=== PATIENT | male | born 1965 | race Hispanic/Latino ===

== ENCOUNTER 2020-11-10 13:02 | Emergency (ER) | payer SELFPAY ==
[2020-11-10 14:02] LABS: Absolute Lymphocytes (CBC) 0.7 K/uL (0.7-4.9); Basophils % 0.3 % (0-1.3); Hematocrit 30.1 % (39.6-49.0); Lymphocytes % 8.6 % (15.3-44.8); MPV 8.3 fL (7.6-11.3); RBC Red Blood Cell Count 3.49 M/uL (4.33-5.43)
[2020-11-10 14:04] LABS: ALT/SGPT 34 U/L (12-78); AST/SGOT 21 U/L (15-37); Albumin 2.9 g/dL (3.4-5.0); Alkaline Phosphatase 138 U/L (45-117); BUN Blood Urea Nitrogen 47 mg/dL (7-18); Bicarbonate 21 mmol/L (21-32); Bilirubin Direct < 0.1 mg/dL (0-0.2); Bilirubin Total 0.4 mg/dL (0.2-1.0); Glucose Level 169 mg/dL (74-106); Lipase 176 U/L (73-393); Magnesium 2.1 mg/dL (1.8-2.4); Potassium 4.7 mmol/L (3.5-5.1); Protein, Total 7.6 g/dL (6.4-8.2); Sodium Level 148 mmol/L (136-145)
[2020-11-10] MEDS ORDERED: MORPHINE 2 MG/ML SYR ONE (14:08)
[2020-11-10] MEDS ORDERED: ONDANSETRON 4 MG/2 ML VIAL ONE (14:08)
[2020-11-10] MEDS ORDERED: NA CHLORIDE 0.9% 1,000 ML ONE (14:08)
--- NOTE | 2020-11-10 14:37 | RAD REPORT ---
EXAM DESCRIPTION: CT - Stone Protocol - 11/10/2020 2:17 pm CLINICAL HISTORY: Flank pain. FLANK PAIN COMPARISON: No comparisons TECHNIQUE: Axial images were obtained without oral or IV contrast. Lack of contrast limits solid org an and vascular assessment. The [id number] spans the entirety of the system partially obscuring uppermost abdomen and lung bases. Coronal reformatted images were obtained and reviewed. All CT scans are performed using dose optimization technique as appropriate and may include automated exposure control or mA/KV adjustment according to patient size. FINDINGS: The lower lung kaur are clear. Imaged portions of the liver and spleen show no suspicious findings on non-contrast imaging. The panc reas and adrenal glands are normal. No pathologic lymphadenopathy in the abdomen or pelvis. There is a vague 4 mm calculus in the mid right ureter with mild right-sided hydronephrosis and hydro ureter. There is no left-sided renal calculus or hydronephrosis. No bowel obstruction, free air, free fluid or abscess. Normal appendix noted. No significant bony abnormality. IMPRESSION: Vague 4 mm calculus mid right ureter with mild right-sided hydronephrosis and hydrourete r.
[2020-11-10 14:43] LABS: Blood Morphology Comment NOT SEEN (NOT SEEN); Platelet Estimate ADEQ; White Blood Cell Scan OK (OK)
[2020-11-10 15:16] LABS: Urine Blood 3+ (NEG); Urine Glucose 1+ (NEG); Urine Protein 3+ (NEG); Urine Specific Gravity 1.025 (1.005-1.030); Urine pH 5.5 (5.0-7.0)
[2020-11-10 15:19] LABS: Urine Bacteria <20 /HPF (NONE SEEN); Urine RBC >50 /HPF (NONE SEEN)
--- NOTE | 2020-11-10 15:57 | EDPHYS ---
Physician Documentation [facility] Name: David Figueroa Age: 55 yrs Sex: Male : 1965 Arrival Date: 11/10/2020 Time: 13:06 Bed 26 Private MD: ED Physician Martin Hernandez HPI: 11/10 13:29 This 55 yrs old Male presents to ER via Ambulatory with complaints of cp Abdominal Pain, Back Pain, Nausea. 13:29 The patient presents with abdominal pain right lower quadrant. Associated signs and cp symptoms: Pertinent positives: nausea and vomiting, Pertinent negatives: testicular pain. 13:29 Onset: The symptoms/episode began/occurred yesterday. cp 13:29 The symptoms are described as constant. Severity of pain: in the emergency department cp the pain is unchanged despite home interventions. Historical: - Allergies: 13:16 No Known Allergies; ll1 - PMHx: 13:16 None; ll1 - PSHx: 13:16 None; ll1 - Immunization history:: Flu vaccine is not up to date. - Social history:: Smoking status: Patient denies any tobacco usage or history of. ROS: 13:29 Eyes: Negative for injury, pain, redness, and discharge. cp 13:29 Constitutional: Negative for fever, poor PO intake. 13:29 Abdomen/GI: Positive for abdominal pain, nausea and vomiting, of the right lower quadrant. Exam: 13:31 Head/Face: Normocephalic, atraumatic. cp 13:31 Constitutional: The patient appears in no acute distress, alert, awake, non-toxic, well developed, well nourished, uncomfortable. 13:31 Eyes: Periorbital structures: appear normal, Conjunctiva: normal, no exudate, no injection, Sclera: no appreciated abnormality, Lids and lashes: appear normal, bilaterally. 13:31 ENT: External ear(s): are unremarkable, Nose: is normal, Posterior pharynx: Airway: no evidence of obstruction, patent. 13:31 Chest/axilla: Inspection: normal, Palpation: is normal, no crepitus, no tenderness. 13:31 Cardiovascular: Rate: normal, Rhythm: regular. 13:31 Respiratory: the patient does not display signs of respiratory distress, Respirations: normal, no use of accessory muscles, no retractions, labored breathing, is not present, Breath sounds: are clear throughout, no decreased breath sounds. 13:31 Abdomen/GI: Inspection: abdomen appears normal, Bowel sounds: active, all quadrants, Palpation: soft, in all quadrants, moderate abdominal tenderness, in the right lower quadrant, rebound tenderness, is not appreciated, involuntary guarding, is not appreciated. Vital Signs: 13:10 BP 154 / 93; Pulse 79; Resp 17; Temp 97.6; Pulse Ox 99% ; Weight 99.79 kg; Height 5 ft. ll1 9 in. (175.26 cm); Pain 10/10; 13:48 BP 160 / 97; Pulse 79; Resp 18; Temp 97.9(O); Pulse Ox 98% on R/A; vg1 15:00 BP 167 / 98; Pulse 86; Resp 16; Pulse Ox 100% on R/A; vg1 13:10 Body Mass Index 32.49 (99.79 kg, 175.26 cm) ll1 MDM: 13:19 Patient medically screened. cp 14:00 Differential diagnosis: appendicitis, non-specific abd pain, pancreatitis, Prostatitis, cp Testicular Torsion, Ureterolithiasis, urinary tract infection. 15:55 Data reviewed: vital signs, nurses notes, lab test result(s), radiologic studies, CT cp scan. 15:55 Counseling: I had a detailed discussion with the patient and/or guardian regarding: the cp historical points, exam findings, and any diagnostic results supporting the discharge/admit diagnosis, lab results, radiology results, to return to the emergency department if symptoms worsen or persist or if there are any questions or concerns that arise at home. ED course: VSS. Pain and nausea markedly improved with meds. Will discharge to home for continued monitoring. 11/10 13:21 Order name: Basic Metabolic Panel cp 11/10 13:21 Order name: CBC with Diff cp 11/10 13:21 Order name: Hepatic Function cp 11/10 13:21 Order name: Lipase cp 11/10 13:21 Order name: Magnesium cp 11/10 13:21 Order name: Urine Microscopic Only cp 11/10 13:21 Order name: Basic Metabolic Panel; Complete Time: 14:20 EDMS 11/10 14:21 Interpretation: Normal except: NA 148; CL 119; GLUC 169; BUN 47; CRE 1.45; GFR 51. cp 11/10 13:21 Order name: Liver (Hepatic) Function; Complete Time: 14:20 EDMS 11/10 13:21 Order name: Lipase; Complete Time: 14:20 EDMS 11/10 13:21 Order name: CBC with Automated Diff; Complete Time: 15:34 EDMS 11/10 14:21 Interpretation: Normal except: RBC 3.49; HGB 10.1; HCT 30.1; RDW 15.6; RAMÓN% 86.9; LYM% cp 8.6. 11/10 13:21 Order name: Magnesium; Complete Time: 14:20 EDMS 11/10 13:21 Order name: Urine Microscopic Only; Complete Time: 15:34 EDMS 11/10 14:41 Order name: Urine Culture cp 11/10 14:43 Order name: CBC Smear Scan; Complete Time: 15:34 EDMS 11/10 13:21 Order name: IV Saline Lock; Complete Time: 13:47 cp 11/10 13:21 Order name: Labs collected and sent; Complete Time: 13:47 cp 11/10 13:21 Order name: Urine Dipstick-Ancillary (obtain specimen); Complete Time: 15:14 cp 11/10 13:58 Order name: CT Stone Protocol; Complete Time: 14:38 cp 11/10 15:09 Order name: Urine Dipstick--Ancillary (enter results); Complete Time: 15:34 mt 11/10 15:13 Order name: PO challenge; Complete Time: 16:07 cp Administered Medications: 13:58 Drug: Zofran (Ondansetron) 4 mg Route: IVP; Site: right wrist; vg1 16:31 Follow up: Response: No adverse reaction; Nausea unchanged vg1 13:58 Drug: morphine 2 mg Route: IVP; Site: right wrist; vg1 16:32 Follow up: Response: No adverse reaction vg1 13:58 Drug: NS 0.9% 1000 ml Route: IV; Rate: 1 bolus; Site: right wrist; vg1 14:30 Follow up: IV Status: Completed infusion vg1 15:07 Drug: Flomax 0.4 mg Route: PO; vg1 15:35 Follow up: Response: No adverse reaction vg1 15:08 Drug: TORadol - Ketorolac 15 mg Route: IVP; Site: right wrist; vg1 15:35 Follow up: Response: No adverse reaction vg1 15:08 Drug: Rocephin - (cefTRIAXone) 1 grams Route: IVPB; Infused Over: 30 mins; Site: right vg1 wrist; 15:35 Follow up: Response: No adverse reaction; IV Status: Completed infusion vg1 15:09 Drug: Magnesium Sulfate 1 grams Route: IVPB; Infused Over: 30 mins; Site: right wrist; vg1 15:35 Follow up: IV Status: Completed infusion vg1 Disposition: 17:50 Co-signature as Attending Physician, Martin Hernandez MD I agree with the assessment and tw4 plan of care. Disposition: 11/10/20 15:57 Discharged to Home. Impression: Calculus of ureter - right. - Condition is Stable. - Discharge Instructions: Kidney Stones, Renal Colic. - Prescriptions for Tylenol- Codeine #3 300-30 mg Oral Tablet - take 2 tablets by ORAL route every 4-6 hours As needed; 20 tablet. Zofran 4 mg Oral Tablet - take 1 tablet by ORAL route every 12 hours As needed; 20 tablet. Flomax 0.4 mg Oral Capsule, Sust. Release 24 hr - take 1 capsule by ORAL route once daily As needed 1/2 hour following the same meal each day; 7 capsule. Keflex 500 mg Oral Capsule - take 1 capsule by ORAL route every 8 hours for 7 days; 21 capsule. - Medication Reconciliation Form, Thank You Letter, Antibiotic Education, Prescription Opioid Use form. - Follow up: Alexei Smallwood MD; When: 2 - 3 days; Reason: Worsening of condition. - Problem is new. - Symptoms have improved. Signatures: Dispatcher [employer] [facility] Peter Bagley PA PA cp Wadley, Terrence, MD MD tw4 Lindsey Reeves RN RN vg1 Kanchan Workman, RN RN ll1 Corrections: (The following items were deleted from the chart) 16:31 15:57 11/10/2020 15:57 Discharged to Home. Impression: Calculus of ureter - right. vg1 Condition is Stable. Forms are Medication Reconciliation Form, Thank You Letter, Antibiotic Education, Prescription Opioid Use. Follow up: Alexei Smallwood; When: 2 - 3 days; Reason: Worsening of condition. Problem is new. Symptoms have improved. cp
--- NOTE | 2020-11-10 15:57 | ER ---
Nurse's Notes [facility] Name: David Figueroa Age: 55 yrs Sex: Male : 1965 Arrival Date: 11/10/2020 Time: 13:06 Bed 26 [facility] MD: Diagnosis: Calculus of ureter-right Presentation: 11/10 13:10 Chief complaint: Patient states: R flank pain for 1 day. Actively vomiting before ll1 triage. No known fever. Reports dysuria. Coronavirus screen: Client denies travel out of the [place] in the last 14 days. At this time, the client does not indicate any symptoms associated with coronavirus-19. Ebola Screen: Patient denies travel to an Ebola-affected area in the 21 days before illness onset. Initial Sepsis Screen: Does the patient meet any 2 criteria? No. Patient's initial sepsis screen is negative. Does the patient have a suspected source of infection? Yes: Dysuria/Frequency/Urgency/UTI. Risk Assessment: Do you want to hurt yourself or someone else? Patient reports no desire to harm self or others. Onset of symptoms was November 10, 2020. 13:10 Method Of Arrival: Ambulatory ll1 13:10 Acuity: PRERNA 3 ll1 Historical: - Allergies: 13:16 No Known Allergies; ll1 - PMHx: 13:16 None; ll1 - PSHx: 13:16 None; ll1 - Immunization history:: Flu vaccine is not up to date. - Social history:: Smoking status: Patient denies any tobacco usage or history of. Screenin:49 Abuse screen: Denies threats or abuse. Nutritional screening: No deficits noted. vg1 Tuberculosis screening: No symptoms or risk factors identified. Fall Risk No fall in past 12 months (0 pts). No secondary diagnosis (0 pts). IV access (20 points). Ambulatory Aid- None/Bed Rest/Nurse Assist (0 pts). Gait- Normal/Bed Rest/Wheelchair (0 pts) Mental Status- Oriented to own ability (0 pts). Total Ramos Fall Scale indicates No Risk (0-24 pts). Assessment: 13:47 General: Appears in no apparent distress. uncomfortable, Behavior is calm, cooperative. vg1 Pain: Complains of pain in right lower quadrant that radiates to the right lower back Pain currently is 10 out of 10 on a pain scale. Pain began 1 day ago. Neuro: Level of Consciousness is awake, alert, obeys commands, Oriented to person, place, time, situation. Cardiovascular: Patient's skin is warm and dry. Respiratory: Airway is patent Respiratory effort is even, unlabored. GI: Bowel sounds present X 4 quads. Abdomen is tender to palpation in right lower quadrant. : Reports burning with urination, pain. EENT: No signs and/or symptoms were reported regarding the EENT system. Derm: Skin is intact, is healthy with good turgor. Musculoskeletal: Circulation, motion, and sensation intact. 15:10 Reassessment: Patient appears in no apparent distress at this time. No changes from vg1 previously documented assessment. Patient and/or family updated on plan of care and expected duration. Pain level reassessed. Patient is alert, oriented x 3, equal unlabored respirations, skin warm/dry/pink. Vital Signs: 13:10 BP 154 / 93; Pulse 79; Resp 17; Temp 97.6; Pulse Ox 99% ; Weight 99.79 kg; Height 5 ft. ll1 9 in. (175.26 cm); Pain 10/10; 13:48 BP 160 / 97; Pulse 79; Resp 18; Temp 97.9(O); Pulse Ox 98% on R/A; vg1 15:00 BP 167 / 98; Pulse 86; Resp 16; Pulse Ox 100% on R/A; vg1 13:10 Body Mass Index 32.49 (99.79 kg, 175.26 cm) ll1 ED Course: 13:06 Patient arrived in ED. ds1 13:10 Arm band placed on. ll1 13:15 Triage completed. ll1 13:17 Peter aBgley PA is PHCP. cp 13:17 Martin Hernandez MD is Attending Physician. cp 13:27 Lindsey Reeves, FIDE is Primary Nurse. vg1 13:35 Initial lab(s) drawn, by me, sent to lab. Inserted saline lock: 20 gauge in right jp3 wrist, using aseptic technique. Blood collected. 13:35 Patient maintains SpO2 saturation greater than 95% on room air. jp3 13:49 Patient has correct armband on for positive identification. Bed in low position. Call 1 light in reach. Side rails up X 1. 14:17 CT Stone Protocol In Process Unspecified. EDMS 15:56 Alexei Smallwood MD is Referral Physician. cp 16:30 No provider procedures requiring assistance completed. IV discontinued, intact, vg1 bleeding controlled, No redness/swelling at site. Pressure dressing applied. Administered Medications: 13:58 Drug: Zofran (Ondansetron) 4 mg Route: IVP; Site: right wrist; vg1 16:31 Follow up: Response: No adverse reaction; Nausea unchanged vg1 13:58 Drug: morphine 2 mg Route: IVP; Site: right wrist; vg1 16:32 Follow up: Response: No adverse reaction vg1 13:58 Drug: NS 0.9% 1000 ml Route: IV; Rate: 1 bolus; Site: right wrist; vg1 14:30 Follow up: IV Status: Completed infusion vg1 15:07 Drug: Flomax 0.4 mg Route: PO; vg1 15:35 Follow up: Response: No adverse reaction vg1 15:08 Drug: TORadol - Ketorolac 15 mg Route: IVP; Site: right wrist; vg1 15:35 Follow up: Response: No adverse reaction vg1 15:08 Drug: Rocephin - (cefTRIAXone) 1 grams Route: IVPB; Infused Over: 30 mins; Site: right vg1 wrist; 15:35 Follow up: Response: No adverse reaction; IV Status: Completed infusion vg1 15:09 Drug: Magnesium Sulfate 1 grams Route: IVPB; Infused Over: 30 mins; Site: right wrist; vg1 15:35 Follow up: IV Status: Completed infusion vg1 Outcome: 15:57 Discharge ordered by MD. cp 16:30 Discharged to home ambulatory. vg1 16:30 Condition: stable 16:30 Discharge instructions given to patient, Instructed on discharge instructions, follow up and referral plans. medication usage, Demonstrated understanding of instructions, follow-up care, medications, Prescriptions given X 4. 16:31 Patient left the ED. vg1 Addendum: 11/14/2020 18:01 Addendum: Culture Results: Positive urine culture. No further action required. Other: s v pt stated that he feels better. Signatures: Dispatcher [employer] EDVT Erica Mccarthy RN RN sv Sanford, Demi ds1 Peter Bagley PA PA Rudolph Randolph jp3 Lindsey Reeves RN RN vg1 Kanchan Workman RN RN ll1 Corrections: (The following items were deleted from the chart) 03 13:57 13:48 BP 160 / 97; Pulse 79bpm; Resp 18bpm; Pulse Ox 98% RA; vg1 vg1 13:58 13:48 BP 160 / 97; Pulse 79bpm; Resp 18bpm; Pulse Ox 98% RA; Temp 97.9F; vg1 vg1
[2020-11-10 16:38] VITALS: TEMP 97.9
[2020-11-10 16:39] VITALS: BP 167/98; O2SAT 100
[2020-11-10] MEDS ORDERED: KETOROLAC 30 MG/ML INJ ONE (16:59)
[2020-11-10] MEDS ORDERED: MAGNESIUM SULFATE 1 gm IVPB 1 GM/100 ML BAG IV ONE (16:59)
[2020-11-10] MEDS ORDERED: CEFTRIAXONE/SWI 1gm 1 GM/10 ML SYR ONE (16:59)
[2020-11-10] MEDS ORDERED: TAMSULOSIN 0.4 MG SR CAP ONE (16:59)
== END 2020-11-10 16:31 | disposition home or self-care (01) ==
LOC: ER 13:02
DX: N20.1 Calculus of ureter (principal)
CPT/HCPCS: 36415; 74176; 76377; 80048; 80076; 81003; 81015; 83690; 83735; 85025; 87077; 87086; 87088; 87186; 96361; 96365; 96375; 99284; J0696; J2270; J2405; J3475; J7030

== ENCOUNTER 2022-09-20 10:55 | Emergency (ER) | payer SELFPAY ==
--- OUTSIDE RECORDS SUMMARY | 2022-09-20 10:58 | XMS REPORT | Continuity of Care Document ---
:1965 Author Organization [facility] t Address [address] [place] [address] Care Team Providers Name Role Phone PCP, PATIENT DOES NOT HAVE A Primary Care Physician Unavaila CHAVEZ Stone Attending Clinician Unavailable Chavez Lovell DO Attending Clinician CHAVEZ LOVELL Admitting Clinician Unavailable Problems This patient has no known problems. Allergies, Adverse Reactions, Alerts Allergy Allergy Status Severity Reaction(s) Onset Inactive Treating Comm ents Source Name Type Date Date Clinician NO KNOWN Drug Active [facility] [place] [facility] Social History Social Habit Start Date Stop Date Quantity Comments Source Exposure to 2022-02-28 2022-03-10 Not sure [facility] SARS-CoV-2 (event) 00:00:00 12:47:00 Medica l Branch Sex Assigned At [birth year] [facility] y [facility] 00:00:00 00:00:00 Medical Branch Smoking Status Start Date Stop Date Source Tobacco smoking consumption Univ [facility] Medical unknown Branch Medications Ordered Filled Start Stop Current Ordering Indication Dosage Frequency Signature Comments Components Source Medication Medication Date Date Medication? Clinician (SIG) Name Name NaCl 0.9% 2021- No 1000mL at 999 Uni vers (NS) bolus 03-10 07-11 mL/hr, ity of infusion 20:00: 21:05 1,000 mL, Adi as 1,000 mL 00 :00 IV Medical Piggyback, Branch ONCE, 1 dose, On Thu03/10/22 at 1500, STAT Immunizations Ordered Filled Immunization Date Status Comments Sourc e Immunization Name Name SARS-COV-2 COVID-19 2021-01-01 Completed Unive rsity of MODERNA VACCINE 00:00:00 [facility] SARS-COV-2 COVID-19 2020-12-04 Completed Unive rsity of MODERNA VACCINE 00:00:00 [facility] ical [place] Vital Signs Vital Name Observation Time Observation Value Comments Source Systolic blood 2022-03-10 20:30:00 176 mm[Hg] Univer sity of pressure [facility] Diastolic blood 2022-03-10 20:30:00 99 mm[Hg[facility] Heart rate 2022-03-10 20:30:00 69 /min [facility] Respiratory rate 2022-03-10 20:30:00 11 /min [facility] Oxygen saturation in 2022-03-10 20:30:00 98 /min [facility] Arterial blood by [facility] Pulse oximetry [place] Body temperature 2022-03-10 16:39:00 36.89 [facility] Body height 2022-03-10 16:39:00 175.3 cm [facility] Body weight 2022-03-10 16:39:00 90.719 kg [facility] BMI 2022-03-10 16:39:00 29.53 kg/m2 [facility] Procedures Procedure Date / Time Performed Performing Clinician Sour e URINALYSIS 2022-03-10 19:31:00 Singer [facility] XR CHEST 1 VW 2022-03-10 17:58:00 Singer [facility] LIPASE 2022-03-10 16:56:00 Singer [facility] MAGNESIUM 2022-03-10 16:56:00 Singer [facility] TROPONIN I 2022-03-10 16:56:00 Lovell, [facility] COMP. METABOLIC PANEL 2022-03-10 16:56:00 [id number] CBC WITH DIFF 2022-03-10 16:56:00 Lovell, [facility] N-TERMINAL PRO-BNP 2022-03-10 16:56:00 Chavez Lovell [facility] NOTICE OF PRIVACY 2022-03-10 16:43:45 Doctor Unassigned, No [facility] PRACTICES Name Medical Branch CONSENT/REFUSAL FOR 2022-03-10 16:35:53 Doctor Unassigned, No Un [facility] DIAGNOSIS AND Name Medical Branch TREATMENT Encounters Start End Encounter Admission Attending Care Care Encounter Source Date/Time Date/Time Type Type Clinicians Facility Department ID 2022-03-10 2022-03-10 Emergency X SINGER [facility] ERT [id number] Univers 11:48:00 16:11:00 CHAVEZ fletcher of [facility] 2022-03-10 2022-03-10 Emergency , [facility] [id number] Univers 11:48:00 16:11:00 Chavez [place] [id number] i ty [facility] [id number] [facility] [id number] [place] [id number] Branch Results Test Description Test Time Test Comments Results Result Comments Source TROPONIN I 2022-03-10 18:50:08 Test Item Value Reference Range Interpretation Comme nts TROPONIN I (test code = 0.005 ng/mL See_Comment [Au tomated message] The [id number]) system which ge nerated this result tra nsmitted reference range : <=0.034. The reference r carl was not used to int erpret this result as normal/abnormal . ALICE (test code = ALICE) Reference (Normal) Range (defined by the 99th percentile reference limit): <= 0.034 ng/mL Note: Cardiac troponin begins to rise 3-4 hours after the onset of ischemia. Repeat in 4-6 hours if the sample was drawn within 3-4 hours of the onset of the symptom and found normal. Diagnosis of myocardial injury is made with acute changes in cTn concentrations with at least one serial sample above the 99th percentile upper reference limit (URL), taken together with the patient's clinical presentation. Biotin has been reported to cause a negative bias, interpret results relative to patient's use of biotin. Lab Interpretation Normal (test code = 06216-1) [facility] [id number] 18:46:50 Test Item Value Reference Range Interpretation Comments NT-proBNP (test code 688 pg/mL See_Comment H [Autom ated = [id number]) message] The system which generated this result transmitted reference range : <=125. The reference range was not used to interpret this result as normal/abnormal . ALICE (test code = ALICE) Biotin has been reported to cause a negative bias, interpret results relative to patient's use of biotin. Lab Interpretation Abnormal (test code = 93197-2) [facility]2022-[facility] 18:37:36 Test Item Value Reference Range Interpretation Comments MAGNESIUM (test code = 8625785480) 1.7 mg/dL 1.7-2.4 Lab Interpretation (test code = Normal 86085-8) [facility] 18:37:16 Test Item Value Reference Range Interpretation Comments LIPASE (test code = 3846870908) 175 U/L 0-220 Lab Interpretation (test code = Normal 45736-3) [facility]OL[facility] PAN[facility] ([id number])2022-03-10 18:00:09 Test Item Value Reference Range Interpretation Comments NA (test code = 140 mmol/L 135-145 3435771663) K (test code = 5.9 mmol/L 3.5-5 H 7629418470) CL (test code = 115 mmol/L 98-108 H 0401547120) CO2 TOTAL (test code = 16 mmol/L 23-31 L 8055271444) AGAP (test code = 2-16 1139170440) BUN (test code = 40 mg/dL 7-23 H 3414695355) GLUCOSE (test code = 237 mg/dL 70-110 H 3539217997) CREATININE (test code = 1.54 mg/dL 0.6-1.25 H 4260852017) TOTAL BILI (test code = 0.3 mg/dL 0.1-1.4 0910273184) CALCIUM (test code = 8.3 mg/dL 8.6-10.6 L 4917540431) T PROTEIN (test code = 6.4 g/dL 6.3-8.2 4939208617) ALBUMIN (test code = 3.5 g/dL 3.5-5 4533306666) ALK PHOS (test code = 137 U/L 34-122 H 0218600962) ALTv (test code = 30 U/L 5-50 1742-6) AST(SGOT) (test code = 22 U/L 13-40 2457427428) eGFR (test code = mL/min/1.73m2 7417964498) ALICE (test code = ALICE) Association of Glomerular Filtration Rate (GFR) and Staging of Kidney Disease* + --+ --+ ------+| GFR (mL/min/1.73 m2) ?| With Kidney Damage ?| ?Without Kidney Damage+ --------+ --------+ +| ?>90 ?| ?Stage one ?| ? Normal ?+ ---+ ---+ -------+| ?60-89 ?| ?Stage two ?| ? Decreased GFR ? + --+ --+ ------+| ?30-59 ?| ?Stage three ?| ? Stage three ? + --+ --+ ------+| ?15-29 ?| ?Stage four ? | ? Stage four ?+ ---+ ---+ -------+| ?<15 (or dialysis) ? ?| ?Stage five ? | ? Stage five ?+ ---+ ---+ -------+ *Each stage assumes the associated GFR level has been in effect for at least three months. ?Stages 1 to 5, with or without kidney disease, indicate chronic kidney disease. Notes: Determination of stages one and two (with eGFR >59mL/min/1.73 m2) requires estimation of kidney damage for at least three months as defined by structural or functional abnormalities of the kidney, manifested by either:Pathological abnormalities or Markers of kidney damage (including abnormalities in the composition of the blood or urine or abnormalities in imaging tests). Lab Interpretation Abnormal (test code = 85743-2) [facility] WITH [id number] 17:43:48 Test Item Value Reference Range Interpretation Comments WBC (test code = See_Comment [Automated 8867-2) message] The sy stem which generated this result transmitted reference range : 4.20 - 10.70 10*3/?L. The reference range was not used to interpret this result as normal/abnormal . RBC (test code = See_Comment L [Automated 799-8) message] The sy stem which generated this result transmitted reference range : 4.26 - 5.52 10*6/?L. The reference range was not used to interpret this result as normal/abnormal . HGB (test code = 8.8 g/dL 12.2-16.4 L 718-7) HCT (test code = 27.6 % 38.4-49.3 L 4544-3) MCV (test code = 89.3 fL 81.7-95.6 787-2) MCH (test code = 28.5 pg 26.1-32.7 785-6) MCHC (test code = 31.9 g/dL 31.2-35 786-4) RDW-SD (test code = 46.8 fL 38.5-51.6 02438-9) RDW-CV (test code = 14.4 % 12.1-15.4 788-0) PLT (test code = See_Comment [Automated 777-3) message] The sy stem which generated this result transmitted reference range : 150 - 328 10*3/ ?L. The reference r carl was not used to interpret this result as normal/abnormal . MPV (test code = 10.1 fL 9.8-13 39367-5) NRBC/100 WBC (test See_Comment [Automat ed code = 2291028579) message] The system which generated this result transmitted reference range : 0.0 - 10.0 /100 WBCs. The refer ence range was not u sed to interpret th is result as normal/abnormal . NRBC x10^3 (test code See_Comment [Auto mated = 6696891875) message] The s ystem which generated this result transmitted reference range : 10*3/?L. The reference range was not used to interpret this result as normal/abnormal . GRAN MAT (NEUT) % 66.3 % (test code = 770-8) IMM GRAN % (test code 0.30 % = 1546608714) LYMPH % (test code = 22.2 % 736-9) MONO % (test code = 6.9 % 5905-5) EOS % (test code = 3.7 % 713-8) BASO % (test code = 0.6 % 706-2) GRAN MAT x10^3(ANC) 4.73 10*3/uL 1.99-6.95 (test code = 2899811873) IMM GRAN x10^3 (test 0-0.06 code = 4729884199) LYMPH x10^3 (test code 1.58 10*3/uL 1.09-3.23 = 731-0) MONO x10^3 (test code 0.49 10*3/uL 0.36-1.02 = 742-7) EOS x10^3 (test code = 0.26 10*3/uL 0.06-0.53 711-2) BASO x10^3 (test code 0.04 10*3/uL 0.01-0.09 = 704-7) Lab Interpretation Abnormal (test code = 91518-1) [facility]"
[2022-09-20] MEDS ORDERED: DOXYCYCLINE 100 MG CAP PO ONE (11:22)
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
[2022-09-20 11:47] VITALS: BP 162/91; TEMP 97.9; O2SAT 99
== END 2022-09-20 11:37 | disposition home or self-care (01) ==
LOC: ER 10:55
DX: L97.519 Non-pressure chronic ulcer of other part of right foot with unspecified severity (principal)
CPT/HCPCS: 99283

== ENCOUNTER 2024-02-05 17:04 | Emergency (ER) | payer OTHER, SELFPAY ==
[2024-02-05] MEDS ORDERED: KETOROLAC 30 MG/ML INJ ONE (17:28)
[2024-02-05] MEDS ORDERED: CYCLOBENZAPRINE 10 MG TAB ONE (17:28)
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
[2024-02-05 19:08] VITALS: BP 138/80; TEMP 97.8; O2SAT 98
== END 2024-02-05 19:00 | disposition home or self-care (01) ==
LOC: ER 17:04
DX: M54.2 Cervicalgia (principal); S39.012A Strain of muscle, fascia and tendon of lower back, initial encounter; V89.2XXA Person injured in unspecified motor-vehicle accident, traffic, initial encounter; I10 Essential (primary) hypertension; E11.9 Type 2 diabetes mellitus without complications
CPT/HCPCS: 70450; 72125; 72131; 96372; 99284

== ENCOUNTER 2024-04-19 07:10 | Emergency (ER) | payer SELFPAY ==
[2024-04-19] MEDS ORDERED: GABAPENTIN 300 MG CAP ONE (07:56)
[2024-04-19] MEDS ORDERED: NA CHLORIDE 0.9% 1,000 ML ONE (07:59)
[2024-04-19 08:01] LABS: Absolute Eosinophils 0.2 K/uL (0-0.5); Absolute Lymphocytes (CBC) 0.8 K/uL (0.7-4.9); Absolute Monocytes 0.5 K/uL (0.1-1.3); Absolute Neutrophil 3.7 K/uL (1.8-8.0); Basophils % 0.4 % (0-1.3); Eosinophils % 3.4 % (0-4.4); Hemoglobin 9.3 g/dL (13.6-17.9); Lymphocytes % 15.1 % (15.3-44.8); MCH 29.3 pg (27.0-35.0); MCHC 33.3 g/dL (32.0-36.0); MCV 88.1 fL (80-100); MPV 7.5 fL (7.6-11.3); Monocytes % 9.8 % (3.3-12.3); Neutrophils % 71.3 % (41.7-73.7); Nucleated Red Blood Cells % 0.1 % (0-0); Platelets 195 thou/uL (152-406); RBC Red Blood Cell Count 3.18 M/uL (4.33-5.43); Red Cell Distribution Width 15.2 % (12.1-15.2)
[2024-04-19 08:16] LABS: Anion Gap 8.3 mEq/L (5.0-15.0); Potassium 4.3 mEq/L (3.5-5.1)
--- NOTE | 2024-04-19 09:57 | ER ---
Nurse's Notes [facility] Name: David Figueroa Age: 58 yrs Sex: Male : 1965 Arrival Date: 04/19/2024 Time: 07:10 Bed 13 Private MD: Diagnosis: Low back pain;Dehydration Presentation: 04/19 07:20 Chief complaint: Patient states: Covid positive, has R lower back pain. Coronavirus ll1 screen: Client denies travel out of the [place] in the last 14 days. cough unrelated to allergies, fatigue, muscle pain, Client presents with at least one sign or symptom that may indicate coronavirus-19. Standard/surgical mask placed on the client. Ebola Screen: Patient denies travel to an Ebola-affected area in the 21 days before illness onset. Initial Sepsis Screen: Does the patient meet any 2 criteria? No. Patient's initial sepsis screen is negative. Does the patient have a suspected source of infection? No. Patient's initial sepsis screen is negative. Risk Assessment: Do you want to hurt yourself or someone else? Patient reports no desire to harm self or others. Onset of symptoms was April 17, 2024. 07:20 Method Of Arrival: Ambulatory ll1 07:20 Acuity: PRERNA 3 ll1 Triage Assessment: 07:23 General: Appears uncomfortable, Behavior is calm, cooperative, appropriate for age. ll1 Pain: Complains of pain in low back Pain radiates to right leg. Respiratory: Reports cough that is. Musculoskeletal: Reports pain in R low back. Historical: - Allergies: 07:20 No Known Allergies; ll1 - PMHx: 07:20 diabetes mellitus; Hypertensive disorder; ll1 - PSHx: 07:20 back; hand; right foot; ll1 - Immunization history:: Adult Immunizations up to date. - Infectious Disease History:: Denies. - Social history:: Smoking status: Patient denies any tobacco usage or history of. - Family history:: not pertinent. - Hospitalizations: : No recent hospitalization is reported. Screenin:28 [facility] ED Fall Risk Assessment (Adult) History of falling in the last 3 months, dd2 including since admission No falls in past 3 months (0 pts) Confusion or Disorientation No (0 pts) Intoxicated or Sedated No (0 pts) Impaired Gait No (0 pts) Mobility Assist Device Used No (0 pt) Altered Elimination No (0 pt) Score/Fall Risk Level 0 - 2 = Low Risk Oriented to surroundings, Maintained a safe environment, Hourly rounding (assess needs \T\ fall precautionary measures) done. Abuse screen: Denies threats or abuse. Nutritional screening: No deficits noted. Tuberculosis screening: No symptoms or risk factors identified. Assessment: 07:28 General: Appears in no apparent distress. Pain: Complains of pain in RIGHT LEG AND dd2 LOWER BACK. Neuro: No deficits noted. Oriented to person, place, time, situation, Appropriate for age. Cardiovascular: No deficits noted. Respiratory: No deficits noted. GI: No deficits noted. : No deficits noted. EENT: No deficits noted. Derm: No deficits noted. Musculoskeletal: No deficits noted. Vital Signs: 07:20 BP 198 / 102; Pulse 64; Resp 17; Temp 97.9(TE); Pulse Ox 100% on R/A; ll1 09:17 BP 154 / 82; Pulse 57; Resp 16; Pulse Ox 97% ; dd2 ED Course: 07:13 Patient arrived in ED. mr 07:13 Angel Chaudhari MD is Attending Physician. rn 07:16 Arm band placed on Patient placed in an exam room, on a stretcher. ll1 07:17 NALDO CHAN, RN is Primary Nurse. dd2 07:23 Triage completed. ll1 07:28 Patient has correct armband on for positive identification. Bed in low position. Call dd2 light in reach. Side rails up X 1. Provided Education on: CALL LIGHT, PROCEDURES. Door closed. Warm blanket given. 07:28 No provider procedures requiring assistance completed. dd2 07:57 Basic Metabolic Panel Sent. dd2 07:57 CBC with Diff Sent. dd2 08:01 Initial lab(s) drawn, by sc, sent to lab. Inserted saline lock: 20 gauge in right dd2 antecubital area, using aseptic technique. Blood collected. Flushed with 10 mL NS. 10:20 IV discontinued, intact, bleeding controlled, No redness/swelling at site. Pressure dd2 dressing applied. Administered Medications: 07:57 Drug: Gabapentin PO 300 mg PO once Route: PO; dd2 08:27 Follow up: Response: No adverse reaction dd2 08:00 Drug: NS 0.9% IV 1000 ml IV at 1000 ml once Route: IV; Rate: 1000 ml; Site: right dd2 antecubital; 08:15 Follow up: Response: No adverse reaction dd2 09:10 Follow up: Response: No adverse reaction; IV Status: Completed infusion; IV Intake: dd2 1000ml Medication: 07:28 VIS not applicable for this client. dd2 Intake: 09:10 IV: 1000ml; Total: 1000ml. dd2 Outcome: 09:57 Discharge ordered by . rn 10:19 Discharged to home ambulatory, dd2 10:19 Condition: stable 10:19 Discharge instructions given to patient, Instructed on discharge instructions, follow up and referral plans. medication usage, Demonstrated understanding of instructions, follow-up care, medications, Prescriptions given X 1, 10:21 Patient left the ED. dd2 Signatures: Viridiana Zamudio Reg Reg mr Nieto, Roman, MD MD rn Lewis, Lynsay, RN RN ll1 NALDO CHAN RN RN dd2
--- NOTE | 2024-04-19 09:57 | EDPHYS ---
Physician Documentation [facility] Name: David Figueroa Age: 58 yrs Sex: Male : 1965 Arrival Date: 04/19/2024 Time: 07:10 Bed 13 Private MD: ED Physician Angel Chaudhari HPI: 04/19 08:01 This 58 yrs old Male presents to ER via Ambulatory with complaints of Back rn Pain, Covid. 08:01 58-year-old male with past medical history of diabetes mellitus, hypertension, and rn sciatica presents to the emergency department complaining of back pain. The patient states that he had a positive home COVID test 3 days ago after feeling sick since last week but feels that he is improving. However, he states that he has developed left lower back and leg pain rated as an 8/10 that he describes to be sharp and burning in nature. Patient reports he has had previous back surgery for disc problems in the past. He states that he has had cough, fever, and abdominal discomfort believed to be due to COVID that are improving at this time but feels as though he has become dehydrated due to decreased p.o. fluid intake over the last week.. Historical: - Allergies: 07:20 No Known Allergies; ll1 - PMHx: 07:20 diabetes mellitus; Hypertensive disorder; ll1 - PSHx: 07:20 back; hand; right foot; ll1 - Immunization history:: Adult Immunizations up to date. - Infectious Disease History:: Denies. - Social history:: Smoking status: Patient denies any tobacco usage or history of. - Family history:: not pertinent. - Hospitalizations: : No recent hospitalization is reported. ROS: 09:55 Constitutional: Negative for fever, chills, and weight loss, Cardiovascular: Negative rn for chest pain, palpitations, and edema, Respiratory: Negative for shortness of breath, cough, wheezing, and pleuritic chest pain, Abdomen/GI: Negative for abdominal pain, nausea, vomiting, diarrhea, and constipation, Back: Positive for back pain that radiates down right leg MS/Extremity: Negative for injury and deformity, Neuro: Negative for headache, weakness, numbness, tingling, and seizure, Exam: 08:18 Constitutional: The patient appears in no acute distress, alert, awake, rn 08:18 Cardiovascular: Exam negative for arrhythmia, edema, murmur, 08:18 Respiratory: Exam negative for acute changes, chest pain, respiratory distress, wheezing, tachypnea, 08:18 Abdomen/GI: Exam negative for discomfort, distension, guarding, rebound tenderness, tenderness, 08:18 Back: pain, that is mild, of the right mid back and right low back, CVA tenderness, is absent, muscle spasm, is appreciated in the right mid back and right low back, Straight leg raises: right lower extremity illicits pain, at 45 degrees, 08:18 Musculoskeletal/extremity: DVT Exam: No signs of deep vein thrombosis. negative Homans' sign noted on exam, 09:55 Constitutional: This is a well developed, well nourished patient who is awake, alert, rn and in no acute distress. ENT: Dry mucous membranes Neuro: Awake and alert, GCS 15, oriented to person, place, time, and situation. Cranial nerves II-XII grossly intact. Motor strength 5/5 in all extremities. Sensory grossly intact. Cerebellar exam normal. Normal gait. Vital Signs: 07:20 BP 198 / 102; Pulse 64; Resp 17; Temp 97.9(TE); Pulse Ox 100% on R/A; ll1 09:17 BP 154 / 82; Pulse 57; Resp 16; Pulse Ox 97% ; dd2 MDM: 07:13 Patient medically screened. rn 09:55 Differential diagnosis: arthritis, Cholelithiasis Fatigue Osteoarthritis Radiculopathy. rn Data reviewed: vital signs, nurses notes, and as a result, I will discharge patient. Counseling: I had a detailed discussion with the patient and/or guardian regarding the historical points, exam findings, and any diagnostic results supporting the discharge/admit diagnosis, lab results, radiology results, the need for outpatient follow up, to return to the emergency department if symptoms worsen or persist or if there are any questions or concerns that arise at home. Response to treatment: the patient's symptoms have mildly improved after treatment, and as a result, I will discharge patient. Special discussion: I discussed with the patient/guardian in detail that at this point there is no indication for admission to the hospital. It is understood, however, that if the symptoms persist or worsen the patient needs to return immediately for re-evaluation. 04/19 07:37 Order name: CBC with Diff; Complete Time: 09:12 rn 08/20 07:37 Order name: Basic Metabolic Panel; Complete Time: 09:12 rn 04/19 07:37 Order name: IV Start; Complete Time: 08:00 rn Administered Medications: 07:57 Drug: Gabapentin PO 300 mg PO once Route: PO; dd2 08:27 Follow up: Response: No adverse reaction dd2 08:00 Drug: NS 0.9% IV 1000 ml IV at 1000 ml once Route: IV; Rate: 1000 ml; Site: right dd2 antecubital; 08:15 Follow up: Response: No adverse reaction dd2 09:10 Follow up: Response: No adverse reaction; IV Status: Completed infusion; IV Intake: dd2 1000ml Disposition Summary: 04/19/24 09:57 Discharge Ordered Notes: Location: Home rn Problem: new rn Symptoms: have improved rn Condition: Stable rn Diagnosis - Low back pain rn - Dehydration rn Followup: rn - With: Private Physician - When: As needed - Reason: Recheck today's complaints, Re-evaluation by your physician Discharge Instructions: - Discharge Summary Sheet rn - Chronic Back Pain rn - Dehydration, Adult rn - Lumbosacral Radiculopathy rn - Musculoskeletal Pain rn Forms: - Medication Reconciliation Form rn - Antibiotic director of maternity services - Prescription Opioid Use rn - Patient Portal Instructions rn - Leadership Thank You Letter rn Prescriptions: - gabapentin 100 mg Oral capsule - take 1 capsule ORAL route every 12 hours As needed; 14 capsule; Refills: 0, rn Product Selection Permitted Signatures: Dispatcher [employer] Angel Crooks MD MD rn Lewis, Lynsay, RN RN ll1 NALDO CHAN RN RN dd2
[2024-04-19 10:37] VITALS: BP 198/102; TEMP 97.9; O2SAT 100
== END 2024-04-19 10:21 | disposition home or self-care (01) ==
LOC: ER 07:10
DX: M54.50 Low back pain, unspecified (principal); E86.0 Dehydration; E11.9 Type 2 diabetes mellitus without complications; I10 Essential (primary) hypertension
CPT/HCPCS: 36415; 80048; 85025; J7030